=== PATIENT | male | born 1950 | race Caucasian/White ===

== ENCOUNTER 2016-11-15 00:56 | Emergency (ER) | payer MEDICARE, BC ==
[2016-11-15] MEDS ORDERED: SOTALOL 80 MG TAB PO ONE (01:16)
[2016-11-15 02:05] VITALS: TEMP 98.2
[2016-11-15] MEDS ORDERED: DIGOXIN INJ 0.5 MG/2 ML AMP IV ONE (02:57)
--- NOTE | 2016-11-15 03:10 | RAD ---
EXAM DESCRIPTION: XR CHEST 2 VIEWS CLINICAL HISTORY: 66 y/o M, afib c rvr COMPARISON: None TECHNIQUE: Two views of the chest. FINDINGS: The lungs are clear. The heart is normal in size. There is no pneumothorax or pleural effusion. There is no acute fracture. IMPRESSION: No acute cardiopulmonary abnormality. Electronically signed by: Josh Cheatham MD 11/15/2016 03:08
[2016-11-15] MEDS ORDERED: WARFARIN SODIUM 5 MG TAB PO ONE (05:32)
--- NOTE | 2016-11-15 05:38 | ED.PDOC ---
History of Present Illness - General Chief Complaint: Chest Pain/[place] Stated Complaint: chest pain Time Seen by Provider: 11/15/16 01:06 Source: patient Exam Limitations: no limitations - History of Present Illness Initial Comments: the patient is a 66-year-old male presenting to the emergency room secondary to mild chest discomfort rated at a 4/10 with associated palpitations. He does have a history of atrial fibrillation with rapid ventricular rate. He has had approximately 3-4 episodes over the same number of years where he has required electrical versus chemical cardioversion. He is a patient of Dr. Jurado. The last time he chemically cardioverted with digoxin. He is only taking sotalol 1 time a day currently in the morning. In the past he has broken the tablet in half and taking it twice a day. He does feel better once his heart rate comes down. No syncope or near syncope. No fevers. He was not doing anything unusual except having a couple of extra beers at a [employer]. Timing/Duration: 1-3 hours Severity: moderate Improving Factors: nothing Worsening Factors: nothing Associated Symptoms: chest pain Allergies/Adverse Reactions: Allergies NO KNOWN ALLERGY Allergy (Verified 11/15/16 01:22) Home Medications: Ambulatory Orders Aspirin [Baby Aspirin] 81 mg PO DAILY 06/14/13 Atorvastatin Calcium [Lipitor] 10 mg PO DAILY 06/14/13 Digoxin [Lanoxin Tab] 0.25 mg PO Q12N #30 tab 06/14/13 Potassium Chloride Tab [Micro-K] 10 meq PO BID #30 tab 06/14/13 Sotalol [Betapace] 80 mg PO BID 06/14/13 Tamsulosin [Flomax] 0.4 mg PO DAILY 06/14/13 Warfarin Sodium 7.5 mg PO .TU, TH, SAT, S 06/14/13 Warfarin Sodium 10 mg PO .MON, WED, FRI 06/14/13 Sulfa/Trimeth 800/160 (Ds) Tab [Bactrim DS Tab] 1 ea PO BID #28 tab 05/04/15 levoFLOXacin [Levaquin] 500 mg PO DAILY #10 tab 05/04/15 Review of Systems - Review of Systems Constitutional: States: no symptoms reported EENTM: States: no symptoms reported Respiratory: States: no symptoms reported Cardiology: States: chest pain, palpitations Gastrointestinal/Abdominal: States: no symptoms reported Genitourinary: States: no symptoms reported Musculoskeletal: States: no symptoms reported Skin: States: no symptoms reported Neurological: States: no symptoms reported Endocrine: States: no symptoms reported All other Systems: No Change from Baseline Past Medical History (General) - Patient Medical History Hx Seizures: No Hx Stroke: No Hx Asthma: No Hx of COPD: No Hx Cardiac Disorders: Yes Hx Congestive Heart Failure: No Hx Pacemaker: No Hx Hypertension: No Hx Diabetes: No Hx Gastroesophageal Reflux: Yes Hx MRSA: No - Vaccination History Hx Tetanus, Diphtheria Vaccination: No Hx Influenza Vaccination: Yes Hx Pneumococcal Vaccination: No Immunizations Up to Date: No - Social History Hx Tobacco Use: No Hx Alcohol Use: No Hx Substance Use: No Hx Substance Use Treatment: No Hx Depression: No Hx Physical Abuse: No Hx Emotional Abuse: No - Female History Patient is a Female of Child Bearing Age (10 -59 yrs old): No Patient : No - Triage Comment ED Triage Comment: no pain just pressure at this time Family Medical History - Family History Father Living Status: Cause of : cancer-lung Physical Exam - Physical Exam General Appearance: Alert, Anxious, No apparent distress Eye Exam: bilateral normal Ears, Nose, Throat: normal ENT inspection, normal pharynx Neck: non-tender, full range of motion, supple Respiratory: chest non-tender, lungs clear, normal breath sounds, no respiratory distress, no accessory muscle use Cardiovascular/Chest: normal peripheral pulses, no edema, other - tachycardic and irregularly irregular Peripheral Pulses: radial,right: 2+, radial,left: 2+, dorsalis pedis,right: 2+, dorsalis pedis,left: 2+ Gastrointestinal/Abdominal: non tender, soft, no organomegaly Rectal Exam: deferred Back Exam: normal inspection, no CVA tenderness, no vertebral tenderness Extremity: normal range of motion, non-tender, normal inspection, no pedal edema , normal capillary refill Neurologic: alert, normal mood/affect, oriented x 3 Skin Exam: normal color Comments: Vital Signs - 24 hr 11/15/16 11/15/16 11/15/16 01:05 01:13 02:00 Temperature 98.2 F Pulse Rate 145 H Pulse Rate [ 112 H 121 H Left] Respiratory 20 20 Rate Blood Pressure 152/97 99/58 [Left Arm] O2 Sat by Pulse 98 97 Oximetry 11/15/16 11/15/16 11/15/16 02:20 02:35 03:05 Temperature Pulse Rate Pulse Rate [ 141 H 126 H 119 H Left] Respiratory 16 16 16 Rate Blood Pressure 101/54 130/76 118/59 [Left Arm] O2 Sat by Pulse 2 L 98 97 Oximetry 11/15/16 03:35 Temperature Pulse Rate Pulse Rate [ 122 H Left] Respiratory 16 Rate Blood Pressure 128/74 [Left Arm] O2 Sat by Pulse 99 Oximetry Progress - Progress Progress: 11/15/16 05:41 The patient is 66-year-old male presenting with atrial fibrillation with rapid ventricular rate. He received a extra dose of his sotalol along with a dose of IV digoxin and IV diltiazem. He cardioverted after the low dose of IV diltiazem. Chest pain is resolved. Blood pressures are holding steady. The patient will be admitted for monitoring for the next 24 hours. Would suggest possibly increasing his sotalol to 80 mg twice a day from once a day at least until he sees Dr. Jurado again. Due to the fact that he did have some chest discomfort with the tachycardia, may warrant further coronary risk stratification. - Results/Orders Results/Orders: Vital Signs - 24 hr 11/15/16 11/15/16 11/15/16 01:05 01:13 02:00 Temperature 98.2 F Pulse Rate 145 H Pulse Rate [ 112 H 121 H Left] Respiratory 20 20 Rate Blood Pressure 152/97 99/58 [Left Arm] O2 Sat by Pulse 98 97 Oximetry 11/15/16 11/15/16 11/15/16 02:20 02:35 03:05 Temperature Pulse Rate Pulse Rate [ 141 H 126 H 119 H Left] Respiratory 16 16 16 Rate Blood Pressure 101/54 130/76 118/59 [Left Arm] O2 Sat by Pulse 2 L 98 97 Oximetry 11/15/16 03:35 Temperature Pulse Rate Pulse Rate [ 122 H Left] Respiratory 16 Rate Blood Pressure 128/74 [Left Arm] O2 Sat by Pulse 99 Oximetry Laboratory Tests 11/15/16 11/15/16 01:15 03:38 WBC 6.7 RBC 4.69 L Hgb 13.4 L Hct 40.0 L MCV 85.3 MCH 28.5 MCHC 33.5 RDW 13.9 Plt Count 117 L MPV 8.1 Absolute Neuts (auto) 3.60 Absolute Lymphs (auto) 2.10 Absolute Monos (auto) 0.70 Absolute Eos (auto) 0.10 Absolute Basos (auto) 0.10 Neutrophils % 54.9 Lymphocytes % 32.3 Monocytes % 10.1 H Eosinophils % 1.9 Basophils % 0.8 PT 17.5 H INR 1.580 PTT (SP) 41.1 H Sodium 136 Potassium 3.4 L Chloride 102 Carbon Dioxide 26 Anion Gap 11.4 L BUN 10 Creatinine 1.07 BUN/Creatinine Ratio 9.3 L Random Glucose 100 Serum Osmolality 271.1 L Calcium 9.0 Magnesium 1.7 L Total Bilirubin 0.3 AST 27 ALT 20 Alkaline Phosphatase 67 Creatine Kinase 146 122 CK-MB (CK-2) 3.3 2.9 CK-MB (CK-2) % Not Reportable Not Reportable Troponin I < 0.02 < 0.02 B-Natriuretic Peptide 181.0 H Serum Total Protein 6.5 Albumin 3.8 Globulin 2.7 Albumin/Globulin Ratio 1.4 Digoxin < 0.3 L chest x-ray largely appears benign. EKG initially shows A. fib with RVR with a right bundle branch block and questionable old inferior [place] there is possibly a mild left axis deviation. Repeat EKG after cardioversion shows the same except now a heart rate of 51 with a sinus rhythm. No acute ST segment changes concerning for ischemia. Departure - Departure Clinical Impression: Atrial fibrillation with rapid ventricular response Chest pain Qualifiers: Chest pain type: unspecified Qualifier Code: (R07.9) Chest pain, unspecified Disposition: Admit Patient Home Medications: Ambulatory Orders Aspirin [Baby Aspirin] 81 mg PO DAILY 06/14/13 Atorvastatin Calcium [Lipitor] 10 mg PO DAILY 06/14/13 Digoxin [Lanoxin Tab] 0.25 mg PO Q12N #30 tab 06/14/13 Potassium Chloride Tab [Micro-K] 10 meq PO BID #30 tab 06/14/13 Sotalol [Betapace] 80 mg PO BID 06/14/13 Tamsulosin [Flomax] 0.4 mg PO DAILY 06/14/13 Warfarin Sodium 7.5 mg PO .TUES, THURS, SAT, S 06/14/13 Warfarin Sodium 10 mg PO .MON, WED, FRI 06/14/13 Sulfa/Trimeth 800/160 (Ds) Tab [Bactrim DS Tab] 1 ea PO BID #28 tab 05/04/15 levoFLOXacin [Levaquin] 500 mg PO DAILY #10 tab 05/04/15 Decision To Admit - Decistion To Admit Decision to Admit Reason: Medical Nature Decision to Admit Date: 11/15/16 Decision to Admit Time: 05:43
[2016-11-15 06:03] VITALS: BP 119/57; O2SAT 98
[2016-11-15] MEDS ORDERED: ENOXAPARIN SODIUM 80 MG/0.8 ML SYG SUBCU ONE (06:09)
== END 2016-11-15 07:05 | disposition still patient (30) ==
LOC: ER 00:56 → MS 05:41 → UNDOADMOB 05:41 → ER 07:05
DX: I48.91 Unspecified atrial fibrillation (principal); K21.9 Gastro-esophageal reflux disease without esophagitis; I45.10 Unspecified right bundle-branch block; Z79.82 Long term (current) use of aspirin; Z79.899 Other long term (current) drug therapy; Z79.01 Long term (current) use of anticoagulants
CPT/HCPCS: 36415; 71020; 80053; 80162; 82550; 82553; 83735; 83880; 84484; 85025; 85610; 85730; 93005; J1160; J1650

== ENCOUNTER 2017-01-12 16:23 | Emergency (ER) | payer MEDICARE, BC ==
[2017-01-12] MEDS ORDERED: DIGOXIN INJ 0.5 MG/2 ML AMP IV ONE (16:42)
[2017-01-12 16:43] VITALS: TEMP 98
--- NOTE | 2017-01-12 19:19 | ED.PDOC ---
History of Present Illness - General Chief Complaint: Cardiovascular Problem Stated Complaint: dizzy, sob, palpitations Time Seen by Provider: 01/12/17 16:41 Source: patient, RN notes reviewed, Vital Signs reviewed Exam Limitations: no limitations - History of Present Illness Initial Comments: Patient is a 66 y/o male who has a history of afib. He has been on Sotalol for some time. At the beginning of November, he was seen in the ED by Dr. Dai and his sotalol was increased to 120mg due to RVR. 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 Because his Sotalol ws increased to 120 mg but he was not given a new prescription, he ran out of his medication early. The insurance company refused to pay for another prescription until he supervisor composing room was contacted. Therefore, he missed his Sotalol for a day. Patient would feel some heartburn when he was standing and his heart was racing , however when he laid down, his pulse would decrease and the heartburn would stop. Timing/Duration: unsure Severity: moderate Improving Factors: nothing Worsening Factors: nothing Associated Symptoms: denies symptoms Allergies/Adverse Reactions: Allergies NO KNOWN ALLERGY Allergy (Verified 01/12/17 16:43) Home Medications: Ambulatory Orders Aspirin [Baby Aspirin] 81 mg PO DAILY 06/14/13 Atorvastatin Calcium [Lipitor] 10 mg PO DAILY 06/14/13 Digoxin [Lanoxin Tab] 0.25 mg PO Q12N #30 tab 06/14/13 Potassium Chloride Tab [Micro-K] 10 meq PO BID #30 tab 06/14/13 Sotalol [Betapace] 80 mg PO BID 06/14/13 Tamsulosin [Flomax] 0.4 mg PO DAILY 06/14/13 Warfarin Sodium 7.5 mg PO .TU, TH, WED, S 06/14/13 Warfarin Sodium 10 mg PO .MON, WED, FRI 06/14/13 Sulfa/Trimeth 800/160 (Ds) Tab [Bactrim DS Tab] 1 ea PO BID #28 tab 05/04/15 levoFLOXacin [Levaquin] 500 mg PO DAILY #10 tab 05/04/15 Sotalol HCl [Betapace] 120 mg PO DAILY #21 tab 01/12/17 Review of Systems - Review of Systems Constitutional: States: no symptoms reported EENTM: States: no symptoms reported Respiratory: States: short of breath Cardiology: States: chest pain, palpitations Gastrointestinal/Abdominal: States: no symptoms reported Genitourinary: States: no symptoms reported Musculoskeletal: States: no symptoms reported Skin: States: no symptoms reported Neurological: States: no symptoms reported Endocrine: States: no symptoms reported Hematologic/Lymphatic: States: no symptoms reported All other Systems: Reviewed and Negative Past Medical History (General) - Patient Medical History Hx Seizures: No Hx Stroke: No Hx Asthma: No Hx of COPD: No Hx Cardiac Disorders: Yes - A-fib Hx Congestive Heart Failure: No Hx Pacemaker: No Hx Hypertension: No Hx Diabetes: No Hx Gastroesophageal Reflux: Yes Hx MRSA: No - Vaccination History Hx Tetanus, Diphtheria Vaccination: No Hx Influenza Vaccination: Yes Hx Pneumococcal Vaccination: No - Social History Hx Tobacco Use: Yes Hx Alcohol Use: No Hx Substance Use: No Hx Substance Use Treatment: No Hx Depression: No Hx Physical Abuse: No Hx Emotional Abuse: No - Activities of Daily Living Hospice Agency (if applicable):: None - Female History Patient is a Female of Child Bearing Age (10 -59 yrs old): No Patient : No Family Medical History - Family History Father Living Status: Cause of : cancer-lung Physical Exam - Physical Exam General Appearance: Alert, Obvious distress, Well Groomed Ears, Nose, Throat: hearing grossly normal, normal ENT inspection Respiratory: lungs clear, normal breath sounds, no respiratory distress, no accessory muscle use Cardiovascular/Chest: irregularly irregular - Auscultated after digoxin given. Rate was normal. Gastrointestinal/Abdominal: normal bowel sounds, non tender, soft, no organomegaly Extremity: normal range of motion, non-tender, normal inspection, no pedal edema , no calf tenderness Neurologic: alert, normal mood/affect, oriented x 3 Skin Exam: normal color, warm/dry Progress - Results/Orders Results/Orders: 01/12/17 01/12/17 01/12/17 16:25 16:44 17:09 Temperature 98.0 F Pulse Rate [ 156 H 65 pulse ox] Respiratory 20 20 20 Rate Blood Pressure 119/66 120/79 [Left Arm] O2 Sat by Pulse 98 98 Oximetry 01/12/17 18:00 Temperature Pulse Rate [ 60 pulse ox] Respiratory 20 Rate Blood Pressure 118/71 [Left Arm] O2 Sat by Pulse 100 Oximetry 01/12/17 16:45 EKG STAT 01/12/17 19:00 EKG STAT - EKG/XRAY/CT EKG: Atrial, Fibrillation - 155 bpm, RVR, no ST T wave changes, Unchanged from - EKG of 11/15/2016 - Afib with RVR rate 142 Comments: Unable to determine [place], Low voltage QRS, Afib with RVR - Additional EKG/XRAY/Consults EKG #2: [place] - 55 bpm, Sinus, no ST T wave changes, Changed from - EKG #1 - converted to sinus rhythm Comments: LAD, low voltage QRS, PACs Departure - Departure Clinical Impression: Atrial fibrillation with rapid ventricular response Time of Disposition: 19:34 Disposition: Discharge to Home or Self Care Condition: Fair Departure Forms: ED Discharge - Pt. Copy, Patient Portal Self Enrollment Instructions: Atrial Fibrillation, DI for Atrial Fibrillation Diet: resume usual diet Referrals: Sonu Isaacs MD [Primary Care Provider] - 1-2 Weeks Prescriptions: Sotalol HCl [Betapace] 120 mg PO DAILY #21 tab Home Medications: Ambulatory Orders Aspirin [Baby Aspirin] 81 mg PO DAILY 06/14/13 Atorvastatin Calcium [Lipitor] 10 mg PO DAILY 06/14/13 Digoxin [Lanoxin Tab] 0.25 mg PO Q12N #30 tab 06/14/13 Potassium Chloride Tab [Micro-K] 10 meq PO BID #30 tab 06/14/13 Sotalol [Betapace] 80 mg PO BID 06/14/13 Tamsulosin [Flomax] 0.4 mg PO DAILY 06/14/13 Warfarin Sodium 7.5 mg PO .TU, TH, SAT, S 06/14/13 Warfarin Sodium 10 mg PO .MON, WED, FRI 06/14/13 Sulfa/Trimeth 800/160 (Ds) Tab [Bactrim DS Tab] 1 ea PO BID #28 tab 05/04/15 levoFLOXacin [Levaquin] 500 mg PO DAILY #10 tab 05/04/15 Sotalol HCl [Betapace] 120 mg PO DAILY #21 tab 01/12/17
[2017-01-12 19:40] VITALS: BP 137/76; O2SAT 98
== END 2017-01-12 19:45 | disposition home or self-care (01) ==
LOC: ER 16:23
DX: I48.91 Unspecified atrial fibrillation (principal); Z79.82 Long term (current) use of aspirin; Z79.01 Long term (current) use of anticoagulants; Z79.899 Other long term (current) drug therapy; Z87.891 Personal history of nicotine dependence; Z80.1 Family history of malignant neoplasm of trachea, bronchus and lung
CPT/HCPCS: 93005; J1160

== ENCOUNTER → 2017-03-25 | Outpatient (CLI) | payer MEDICARE, BC | END | disposition home or self-care (01) | LOC: GMAB 10:10 | PROVIDERS: ATTEND Family Medicine | DX: E78.2 Mixed hyperlipidemia (principal); Z12.5 Encounter for screening for malignant neoplasm of prostate | CPT/HCPCS: 84443; G0103 ==

== ENCOUNTER → 2017-10-12 | Outpatient (CLI) | payer MEDICARE, BC ==
--- NOTE | 2017-10-12 20:02 | MRI ---
EXAM DESCRIPTION: Lumbar Spine w/o Contrast CLINICAL HISTORY: LUMBAR RADICULOPATHY COMPARISON: None Available. TECHNIQUE: Multiplanar multisequence MR imaging of the lumbar spine was performed without contrast FINDINGS: There are diffuse nonspecific marrow signal changes in the vertebral bodies. There is moderate neural foraminal narrowing bilaterally at T12-L1, L1-2, L2-3, and L3-4. At L4-5 there is moderately severe right and severe left neuroforaminal narrowing. L5-S1 there is moderately severe right and severe left neuroforaminal narrowing. There is moderately severe loss of height of the L3-4 and L5-S1 discs. There is moderate loss of height of the L4-5 disc. There are multiple moderate anterior disc osteophyte complexes. Broad-based disc bulge and L1 to causes moderate central canal and moderate bilateral lateral recess narrowing. Broad-based disc bulge at L2-3 causes moderately severe central canal narrowing and there is moderately severe bilateral lateral recess narrowing. There is moderate bilateral facet joint hypertrophy at this level. At L3-4 there is mild central canal and moderate right lateral recess and mild left lateral recess narrowing caused by broad-based right posterior disc bulge. Left paracentral disc protrusion at L4-5 causes moderate central canal and moderately severe left lateral recess narrowing. There are multilevel bilateral lateral disc osteophyte complexes. For purposes of this exam, it is assumed that there are five nonrib-bearing lumbar vertebral bodies. There is no evidence of acute fracture. No spondylolisthesis or spondylolysis seen. IMPRESSION: Stenoses as above. Electronically signed by: Luis Miguel Mendoza 10/12/2017 8:01 PM [facility]
== END | disposition home or self-care (01) ==
LOC: MRI 15:03
PROVIDERS: ATTEND Physical Medicine & Rehabilitation
DX: M54.16 Radiculopathy, lumbar region (principal)

== ENCOUNTER 2017-10-29 17:35 | Emergency (ER) | payer MEDICARE, BC ==
[2017-10-29] MEDS ORDERED: ASPIRIN (CHEWABLE) 81 MG TAB PO ONE (17:43)
--- NOTE | 2017-10-29 18:16 | RAD ---
EXAM DESCRIPTION: Chest,1 View CLINICAL HISTORY: pain COMPARISON: 11/15/2016 FINDINGS: Cardiac silhouette is within normal limits. Nonspecific density at the lateral aspect of the left lung base could reflect loculated effusion. Pleural-based mass not entirely excluded. The medial margin is better defined than typical for consolidation or atelectasis. There is density at this location previously. There is no new focal parenchymal or pleural disease. Visualized osseous structures are within normal limits. IMPRESSION: No evidence of acute cardiopulmonary disease. Electronically signed by: Luis Miguel Mendoza 10/29/2017 6:15 PM [facility]
[2017-10-29 18:20] VITALS: O2SAT 97
[2017-10-29] MEDS ORDERED: SODIUM CHLORIDE 0.9% 250ML 250 ML ONE (19:04)
[2017-10-29] MEDS ORDERED: diltiaZEM DRIP 125 MG/25 ML VIAL IVPB ONE (19:05)
[2017-10-29] MEDS ORDERED: SODIUM CHLORIDE 0.9% 100ML 100 ML IVPB ONE (19:08)
--- NOTE | 2017-10-29 19:24 | ED.PDOC ---
History of Present Illness - General Chief Complaint: Chest Pain/[place] Stated Complaint: chest pain,tachycardic Time Seen by Provider: 10/29/17 17:42 Source: patient Exam Limitations: no limitations - History of Present Illness Initial Comments: Richard Hutchins 67 y/o male brought by to [facility] with sharp chest pains while driving ,feeling heart beating fast,and sob.Had some diaphoresis but no nausea,vomiting dizziness or passing out.Has afib for 10 years anticoagulated and also had cardiac ablation done was controlled for 4 years but recurred. Timing/Duration: 1-3 hours Severity: moderate Location: central Activities at Onset: activity Prior Chest Pain/Cardiac Workup: cardiac cath, other - cardiac ablation Improving Factors: nothing Worsening Factors: nothing Nitro Today/Relief: provided by ED Aspirin Treatment Today: 325 mg x 1, provided by ED Associated Symptoms: other - see hpi Allergies/Adverse Reactions: Allergies NO KNOWN ALLERGY Allergy (Verified 01/12/17 16:43) Home Medications: Ambulatory Orders Aspirin [Baby Aspirin] 81 mg PO DAILY 06/14/13 Atorvastatin Calcium [Lipitor] 10 mg PO DAILY 06/14/13 Digoxin [Lanoxin Tab] 0.25 mg PO Q12N #30 tab 06/14/13 Potassium Chloride Tab [Micro-K] 10 meq PO BID #30 tab 06/14/13 Sotalol [Betapace] 80 mg PO BID 06/14/13 Tamsulosin [Flomax] 0.4 mg PO DAILY 06/14/13 Warfarin Sodium 7.5 mg PO .TU, TH, SAT, S 06/14/13 Warfarin Sodium 10 mg PO .MON, WED, FRI 06/14/13 Sulfa/Trimeth 800/160 (Ds) Tab [Bactrim DS Tab] 1 ea PO BID #28 tab 05/04/15 levoFLOXacin [Levaquin] 500 mg PO DAILY #10 tab 05/04/15 Sotalol HCl [Betapace] 120 mg PO DAILY #21 tab 01/12/17 Past Medical History (General) - Patient Medical History Hx Seizures: No Hx Stroke: No Hx Asthma: No Hx of COPD: No Hx Cardiac Disorders: Yes - A-fib Hx Congestive Heart Failure: No Hx Pacemaker: No Hx Hypertension: No Hx Diabetes: No Hx Gastroesophageal Reflux: Yes Hx MRSA: No Surgical History: no surgical history - Vaccination History Hx Tetanus, Diphtheria Vaccination: No Hx Influenza Vaccination: No Hx Pneumococcal Vaccination: Yes - 10/28/17 - Social History Hx Tobacco Use: Yes Hx Alcohol Use: No Hx Substance Use: No Hx Substance Use Treatment: No Hx Depression: No Hx Physical Abuse: No Hx Emotional Abuse: No - Activities of Daily Living Patient Lives Alone: No - - Female History Patient : No Family Medical History - Family History Father Living Status: Cause of : cancer-lung Hx Cardiac Disease: Yes - multiple family members Physical Exam - Physical Exam General Appearance: Alert, Anxious, Comfortable, No apparent distress Eyes, Ears, Nose, Throat Exam: PERRL/EOMI, normal ENT inspection Neck: non-tender, full range of motion, supple Respiratory: chest non-tender, lungs clear, normal breath sounds, no respiratory distress Cardiovascular/Chest: tachycardia - heart rate-164, irregularly irregular Peripheral Pulses: radial,right: 2+, radial,left: 2+ Gastrointestinal/Abdominal: normal bowel sounds, non tender, soft, no organomegaly Extremity: normal range of motion, non-tender, no pedal edema, no calf tenderness Skin Exam: normal color, warm/dry Lymphatic: no adenopathy Progress - Progress Progress: 10/29/17 19:29 Last Vital Signs Temp Pulse 144 H 10/29/17 18:17 Resp 20 10/29/17 18:15 BP 135/72 10/29/17 18:15 Pulse Ox 97 10/29/17 18:15 - Results/Orders Results/Orders: Laboratory Tests 10/29/17 10/29/17 17:45 19:33 WBC 8.7 RBC 4.69 L Hgb 14.2 Hct 41.9 L MCV 89.3 MCH 30.2 MCHC 33.8 RDW 13.7 Plt Count 152 MPV 7.7 Absolute Neuts (auto) 5.30 Absolute Lymphs (auto) 2.40 Absolute Monos (auto) 0.90 H Absolute Eos (auto) 0.10 Absolute Basos (auto) 0.10 Neutrophils % 60.6 Lymphocytes % 27.6 Monocytes % 9.9 H Eosinophils % 1.2 Basophils % 0.7 PT 20.0 H INR 1.780 PTT (SP) 38.4 H Sodium 131 L Potassium 3.8 Chloride 95 L Carbon Dioxide 29 Anion Gap 10.8 L BUN 14 Creatinine 1.14 BUN/Creatinine Ratio 12.3 Random Glucose 106 H Serum Osmolality 263.5 L Calcium 9.2 Magnesium 1.8 Total Bilirubin 0.6 Direct Bilirubin 0.2 Indirect Bilirubin 0.4 AST 20 ALT 19 Alkaline Phosphatase 56 Creatine Kinase 121 CK-MB (CK-2) 3.8 CK-MB (CK-2) % Not Reportable Troponin I < 0.02 < 0.02 Serum Total Protein 7.3 Albumin 4.2 - EKG/XRAY/CT EKG: Atrial, Fibrillation, nonspecific ST T wave Chg Comments: Heart rate-163 XRAY: chest - no acute abnormality Departure - Departure Clinical Impression: Atrial fibrillation with rapid ventricular response Chest pain Qualifiers: Chest pain type: chest pain due to myocardial ischemia Ischemic chest pain type : unspecified angina pectoris type Qualified Code(s): I20.9 - Angina pectoris, unspecified Time of Disposition: 22:29 Disposition: Transfer to Hospital Condition: Fair Departure Forms: Patient Portal Self Enrollment Referrals: Sonu Isaacs MD [Primary Care Provider] - 1-2 Weeks Home Medications: Ambulatory Orders Aspirin [Baby Aspirin] 81 mg PO DAILY 06/14/13 Atorvastatin Calcium [Lipitor] 10 mg PO DAILY 06/14/13 Digoxin [Lanoxin Tab] 0.25 mg PO Q12N #30 tab 06/14/13 Potassium Chloride Tab [Micro-K] 10 meq PO BID #30 tab 06/14/13 Sotalol [Betapace] 80 mg PO BID 06/14/13 Tamsulosin [Flomax] 0.4 mg PO DAILY 06/14/13 Warfarin Sodium 7.5 mg PO ., , SAT, S 06/14/13 Warfarin Sodium 10 mg PO .MON, WED, Wed06/14/13 Sulfa/Trimeth 800/160 (Ds) Tab [Bactrim DS Tab] 1 ea PO BID #28 tab 05/04/15 levoFLOXacin [Levaquin] 500 mg PO DAILY #10 tab 05/04/15 Sotalol HCl [Betapace] 120 mg PO DAILY #21 tab 01/12/17 Transfer to Outside Facility - Transfer Information Accepting Provider:: D/W Dr. Tam -DRE Bateman Accepting Facility: [facility] Reason for Transfer: required specialist not available
[2017-10-29] MEDS ORDERED: DIGOXIN INJ 0.5 MG/2 ML AMP IV ONE (19:48)
[2017-10-29] MEDS ORDERED: SODIUM CHLORIDE 0.9% 1000ML 1,000 ML ONE (19:57)
[2017-10-29] MEDS ORDERED: diltiaZEM DRIP 125 MG in SODIUM CHLORIDE 0.9% 100ML 100 ML IVPB SCH (22:30)
[2017-10-29 23:07] VITALS: TEMP 97.6
[2017-10-29] MEDS ORDERED: SODIUM CHLORIDE 0.9% 1000ML 1,000 ML IVS PRN (23:08)
[2017-10-29] MEDS ORDERED: SUCRALFATE 1 GM/10 ML 1 GM UD PO ONE (23:09)
[2017-10-29] MEDS ORDERED: ALUM & MAG HYDROX-SIMETHICONE 30 ML, LIDOCAINE VISCOUS 2% 15 ML PO ONE ×2 (23:10)
[2017-10-29] MEDS ORDERED: ALUM & MAG HYDROX-SIMETHICONE 30 ML UD ONE (23:14)
[2017-10-29] MEDS ORDERED: LIDOCAINE HCL 2% (MOUTH-THROAT) 15 ML UD ONE (23:14)
[2017-10-29 23:32] VITALS: BP 126/77
== END 2017-10-29 23:20 | disposition short-term general hospital (02) ==
LOC: ER 17:35
DX: I20.9 Angina pectoris, unspecified (principal); I48.91 Unspecified atrial fibrillation; Z79.01 Long term (current) use of anticoagulants; Z87.891 Personal history of nicotine dependence; Z79.82 Long term (current) use of aspirin
CPT/HCPCS: 36415; 71010; 80048; 80076; 82550; 82553; 84484; 85025; 85610; 85730; 93005; J1160; J7030; J7050

== ENCOUNTER → 2017-11-25 | Outpatient (CLI) | payer MEDICARE, BC ==
--- NOTE | 2017-11-26 14:20 | US ---
EXAM DESCRIPTION: Aorta: Ultrasound CLINICAL HISTORY: AAA COMPARISON: Ultrasound carotid vertebral duplex examination on the same visit. CT abdomen and pelvis with contrast 02/06/2015. TECHNIQUE: Transcutaneous scanning: Two-dimensional and Doppler modes. FINDINGS: Abdominal aorta diameter (cm) Proximal: 2.3 x 1.9 cm.. Mid: 2.3 x 1.8 cm. Distal: 3.7 x 3.0 cm. Common Iliac diameter (mm) Right: 12. Left: 12. Other: Intimal wall thickening and atherosclerotic calcification in the abdominal aorta and the bilateral common iliac arteries.. IMPRESSION: 3.7 cm aneurysm of the distal abdominal aorta. This has enlarged since the CT scan of abdomen and pelvis January 2015. According to [facility] Best Practice recommendations, follow up of the distal abdominal aortic aneurysm should be in 12 month interval. Please see below.* *AAA Size: Follow-up Recommendation (1): 2.6 - 2.9 cm Every 5 years (2) 3.0 - 3.4 cm Every 3 years 3.5 - 3.9 cm Every 12 months 4.0 - 4.4 cm Every 12 months, vasc consult rec 4.5 - 5.4 cm Every 6 months, vasc consult rec >=5.5 cm Referral to vascular surgeon recommended (1)Based upon the Society for Vascular Surgery Guidelines: J Vasc Surg. 2009 Aug;50(4 Suppl):S2-49 (2)For aortas of max bartolo of 2.6-2.9 cm that meet criteria for AAA (>= 1.5 x proximal normal segment) Electronically signed by: Luis Miguel Holt MD 11/26/2017 2:18 PM [employer]BER [employer] INVESTIGATOR
--- NOTE | 2017-11-26 14:30 | US ---
EXAM DESCRIPTION: Carotid Duplex: ULTRASOUND. CLINICAL HISTORY: STENOSIS COMPARISON: Ultrasound of the abdominal aorta on this visit. TECHNIQUE: Transcutaneous scanning utilizing 2-dimensional and Doppler modes to evaluate the bilateral carotid systems and vertebral arteries. Percentage of diameter of stenosis or no stenosis recorded will be based upon NASCET criteria. FINDINGS: Peak systolic/end diastolic (CM-Sec) CCA Right 109/45 Left 117/29. ICA Right proximal 73/23, mid 80/25. Left proximal 39/18, Distal 67/24. Vertebral Right 40/14 Left 48/8. ECA (PS Only) Right 88 left 60. ICA/CCA peak systolic ratio: Right 0.7 Left 0.6. ICA/CCA end diastolic ratio: Right 0.6 Left 0.8 Vertebral arteries: antegrade flow. Comments: Atherosclerotic calcifications in the bilateral common carotid bulbs and proximal ICAs. Spectral broadening in the bilateral ICAs. Largest diameter stenosis was 31% in the left common carotid bulb. This was also the greatest area stenosis at 23%. IMPRESSION: 1. Doppler evaluation of the bilateral carotid systems and vertebral arteries shows no hemodynamically significant stenoses. 2. No significant amount of plaque seen in the carotid arteries bilaterally. Bilateral vertebral arteries showed antegrade-cephalad flow. Electronically signed by: Luis Miguel Holt MD 11/26/2017 2:29 PM RHEOLOGIST
== END | disposition home or self-care (01) ==
LOC: US 09:00
PROVIDERS: ATTEND Family Medicine
DX: I65.23 Occlusion and stenosis of bilateral carotid arteries (principal); I71.4 Abdominal aortic aneurysm, without rupture

== ENCOUNTER 2018-01-17 11:12 | Observation (INO) | payer MEDICARE, BC ==
[2018-01-17] MEDS ORDERED: ASPIRIN TABLET 325 MG TAB PO ONE (11:31)
[2018-01-17] MEDS ORDERED: ALUMINUM & MAGNESIUM HYDROXIDE 30 ML UD PO ONE (11:31)
[2018-01-17] MEDS ORDERED: SOTALOL 80 MG TAB PO ONE (11:31)
[2018-01-17] MEDS ORDERED: MAGNESIUM SULFATE PREMIX 2GM 2 GM in PREMIX BAG 1 BAG IVPB ONE (12:12)
[2018-01-17] MEDS ORDERED: MAGNESIUM SULFATE PREMIX 2GM 50 ML IVPB ONE (12:15)
--- NOTE | 2018-01-17 12:24 | RAD ---
EXAM DESCRIPTION: Portable Chest CLINICAL HISTORY: cp with atrial flutter COMPARISON: October 29, 2017 TECHNIQUE: Single frontal view of chest FINDINGS: Lungs are stably aerated bilaterally. Mildly increased interstitial opacities in the lower right lung. No consolidation or pneumothorax nor costophrenic blunting elsewhere on either side. Cardiac mediastinal contours are stable in appearance. Calcific atherosclerotic deposition again seen in aortic arch IMPRESSION: Increase atelectatic or early airspace consolidative changes in lower right lung Electronically signed by: Ra Foster MD 01/17/2018 12:23 PM COVER CUTTER
[2018-01-17] MEDS ORDERED: DIGOXIN INJ 0.5 MG/2 ML AMP IV ONE ×2 (13:28→21:00)
--- NOTE | 2018-01-17 13:30 | ED.PDOC ---
History of Present Illness - General Chief Complaint: Cardiovascular Problem Stated Complaint: chest pain Time Seen by Provider: 01/17/18 11:15 Source: patient Exam Limitations: no limitations - History of Present Illness Initial Comments: The patient is a 67-year-old male who is a patient of Dr. Jurado. The patient has a history of atrial fibrillation and atrial flutter with rapid ventricular rate that is paroxysmal in nature. He had an ablation several years ago. One to 2 times yearly he apparently gets over her anterior A. fib or a flutter with RVR. This apparently occurred 3 days ago. Normally the patient comes in earlier however this time he did delay as he was not having very severe symptoms. Symptoms include some epigastric discomfort and some substernal discomfort. He does feel a little bit weak and dizzy when trying to do significant physical activities with this. No syncope or near syncope. No back pain. No cough or fever. No new swelling. No swelling of his abdomen. No edema. No orthopnea or paroxysmal nocturnal dyspnea. The patient had decided that after 3 days his abdominal wall enough so he showed up to the emergency room. Blood pressures are averaging around 100/70. Heart rates are right at 120 bpm and EKG shows atrial flutter with 2:1 conduction. interestingly thechest and epigastric discomfort didn't go away with a dose of Maalox here. Severity: moderate Improving Factors: nothing Worsening Factors: nothing Associated Symptoms: chest pain, malaise, weakness Allergies/Adverse Reactions: Allergies NO KNOWN ALLERGY Allergy (Verified 01/17/18 11:37) Home Medications: Ambulatory Orders Aspirin [Baby Aspirin] 81 mg PO DAILY 06/14/13 Atorvastatin Calcium [Lipitor] 10 mg PO DAILY 06/14/13 Sotalol [Betapace] 40 mg PO BID 06/14/13 Warfarin Sodium 7.5 mg PO ., TH, WED, S 06/14/13 Warfarin Sodium 10 mg PO .MON, WED, Wed06/14/13 Aspirin [St Jb Aspirin] 81 mg PO DAILY 01/17/18 Memantine HCl [Namenda] 10 mg PO DAILY 01/17/18 Review of Systems - Review of Systems Constitutional: States: malaise, weakness - mild generalized EENTM: States: no symptoms reported Respiratory: States: short of breath - with exertion only Cardiology: States: chest pain - ild substernal Gastrointestinal/Abdominal: States: abdominal pain - ild epigastric Genitourinary: States: no symptoms reported Musculoskeletal: States: no symptoms reported Skin: States: no symptoms reported Neurological: States: no symptoms reported Endocrine: States: no symptoms reported All other Systems: No Change from Baseline Past Medical History (General) - Patient Medical History Hx Seizures: No Hx Stroke: No Hx Asthma: No Hx of COPD: No Hx Cardiac Disorders: Yes - A-fib Hx Congestive Heart Failure: No Hx Pacemaker: No Hx Hypertension: No Hx Diabetes: No Hx Gastroesophageal Reflux: Yes Hx MRSA: No Surgical History: other - Vaccination History Hx Tetanus, Diphtheria Vaccination: No Hx Influenza Vaccination: No Hx Pneumococcal Vaccination: Yes - 10/28/17 - Social History Hx Tobacco Use: Yes Hx Alcohol Use: No Hx Substance Use: No Hx Substance Use Treatment: No Hx Depression: No Hx Physical Abuse: No Hx Emotional Abuse: No - Female History Patient : No Family Medical History - Family History Father Living Status: Cause of : cancer-lung Hx Cardiac Disease: Yes - multiple family members Physical Exam - Physical Exam General Appearance: Alert, Comfortable, No apparent distress Eye Exam: bilateral normal Ears, Nose, Throat: hearing grossly normal, normal ENT inspection, normal pharynx Neck: full range of motion, supple, normal inspection Respiratory: no respiratory distress, no accessory muscle use, other - he does have very fine rales at the right base Otherwise lungs are clear. 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 His BNP is more elevated than in the past however this is likely due to the patient delaying coming in for 3 days this time. He really has minimal evidence of any CHF exacerbation clinically. His most significant symptom is the epigastric discomfort and shortness of breath with activity. Electrocardioversion has been offered to the patient however he defers that at this time in favor of attempting chemical cardioversion. Chemical cardioversion has worked every time in the past so far. This is reasonable given that he does appear to be clinically stable at this time. He is adequately anticoagulated and fact is actually supratherapeutic and his INR. The patient was given one small dose of Cardizem without any significant effect. He was given an extra 40 mg of sotalol orally and after his IV magnesium goes and will be receiving a dose of IV digoxin. this is being used secondary to the borderline blood pressure. This has apparently worked in the past. Repeat cardiac enzymes in 8 hours may be beneficial however given the duration of symptoms they are unlikely to change significantly. Admit for further management. Electrocardioversion if the patient becomes unstable in any way. chest x-ray shows either a small right lower lobe infiltrate versus atelectasis. Given his history and physical exam I 'm more inclined to think that this is atelectasis. However if the patient's clinical presentation changes in favor of the other then antibiotics should of course be started. - Results/Orders Results/Orders: 01/17/18 11:30 Telemetry .CONTINUOUS 01/17/18 11:45 EKG STAT 01/17/18 Lunch Cardiac Diet Laboratory Results - last 24 hr 01/17/18 01/17/18 01/17/18 11:35 11:35 11:35 WBC 11.2 H RBC 5.04 Hgb 14.6 Hct 43.3 MCV 85.9 MCH 28.9 MCHC 33.7 RDW 13.7 Plt Count 283 MPV 7.6 Absolute Neuts (auto) 8.50 H Absolute Lymphs (auto) 1.70 Absolute Monos (auto) 0.70 Absolute Eos (auto) 0.10 Absolute Basos (auto) 0.20 H Neutrophils % 75.8 Lymphocytes % 14.8 L Monocytes % 6.7 Eosinophils % 1.3 Basophils % 1.4 PT 48.5 H* INR 4.360 H* PTT (SP) 59.0 H Sodium 134 L Potassium 4.1 Chloride 99 L Carbon Dioxide 27 Anion Gap 12.1 BUN 15 Creatinine 1.25 BUN/Creatinine Ratio 12.0 Random Glucose 148 H Serum Osmolality 271.8 L Calcium 9.2 Magnesium 1.6 L Total Bilirubin 1.5 H AST 16 ALT 15 Alkaline Phosphatase 70 Creatine Kinase 50 CK-MB (CK-2) 1.9 CK-MB (CK-2) % Not Reportable Troponin I 0.02 B-Natriuretic Peptide 1210.0 H* Serum Total Protein 7.0 Albumin 3.2 Globulin 3.8 H Albumin/Globulin Ratio 0.8 L Amylase 72 TSH 0.95 chest x-ray shows questionable small right lower lobe infiltrate versus atelectasis. EKG shows atrial flutter with 21 conduction at 120 bpm. See no definitive evidence of localized ischemia on this EKG it is somewhat difficult to interpret secondary to distortion in the ST segments. Departure - Departure Clinical Impression: Atrial flutter, paroxysmal Disposition: Admit Patient Home Medications: Ambulatory Orders Aspirin [Baby Aspirin] 81 mg PO DAILY 06/14/13 Atorvastatin Calcium [Lipitor] 10 mg PO DAILY 06/14/13 Sotalol [Betapace] 40 mg PO BID 06/14/13 Warfarin Sodium 7.5 mg PO .TU, TH, SAT, S 06/14/13 Warfarin Sodium 10 mg PO .MON, WED, FRI 06/14/13 Aspirin [St Jb Aspirin] 81 mg PO DAILY 01/17/18 Memantine HCl [Namenda] 10 mg PO DAILY 01/17/18 Decision To Admit - Decistion To Admit Decision to Admit Reason: Medical Nature Decision to Admit Date: 01/17/18
--- NOTE | 2018-01-17 15:13 | HP ---
SUPERVISING PHYSICIAN: Artie Dai MD CHIEF COMPLAINT: Chest pains and palpitations. HISTORY OF PRESENT ILLNESS: Mr. Mortensen is a 67 year-old male patient with a history of atrial fibrillation and flutter that is paroxysmal in nature. He has had multiple ablations in the past year. He is followed by Dr. Jurado. He notes that he has had several episodes at least twice a year where he apparently gets into atrial fibrillation or flutter with rapid ventricular response. In the last three days he has noted he was starting to have a rapid heart rate but had delayed coming to the hospital hoping that he would convert without any assistance. His symptoms continue to worsen and he developed some gastric discomfort as well as some substernal chest pains. He notes that he is also feeling a little bit weak and dizzy on admission when he tries to flake off and due his normal activities. He has not had any syncopal or near- syncopal episodes. He denied any orthopnea or paroxysmal nocturnal dyspnea. On presentation to the Emergency Room his vital signs showed he was afebrile with a temperature of 97.4. Initial pulse was 168 with a blood pressure of 102/ 77 with saturation of 95%. In the Emergency Department he was given an initial trial of Cardizem but, however, was having some issues with hypertension. It is also noted that on the laboratory studies he had a low magnesium of 1.6. He is on Sotalol for rate control and in the past has had good luck with chemical conversion with digoxin. He was offered cardioversion in the Emergency Room with electrical methods but declined but was to be admitted and try more conservative measures with possibly digoxin or Cardizem. Initially he was located with digoxin at 0.5 ing in the Emergency Room. He is on Warfarin and his labs today showed he was supratherapeutic with an INR of 4.36. However, he had just taken his Warfarin 2 hours prior to labs being drawn. EKG showed he was in A-flutter with a 2:1 conduction. His chest x-ray per radiology interpretation showed increase in atelectatic or early air space consolidative changes in the right lower lung. His additional laboratory studies also showed he had an elevated BNP of 1210 but his troponin was within normal limits at 0.02. The patient is now going to be placed in observation close telemetry monitoring and continuation of loading of digoxin in attempts to do a chemical cardioversion as the patient is hemodynamically stable. The patient is placed in observation in stable condition. PAST MEDICAL HISTORY: 1. Atrial fibrillation, A-flutter status post ablation multiple times in several years. 2. Chronic Coumadin therapy. 3. Cardiac arrhythmias on Sotalol. 4. Hyperlipidemia. 5. Benign prostatic hypertrophy. . 6. Hyperlipidemia. 7. Gastroesophageal reflux disease. PAST SURGICAL HISTORY: 1. Status post heart catheterization. CURRENT MEDICATIONS: 1. Pantoprazole 40 mg daily. 2. Lipitor 20 mg daily. 3. Aspirin 81 mg daily. 4. Namenda 10 mg daily. 5. Betapace 40 mg b.i.d. 6. Warfarin 7.5 mg Wednesday through Wednesday, Wednesday. 7. Warfarin 10 mg Wednesday, Wednesday, Wednesday. ALLERGIES: NO KNOWN DRUG ALLERGIES. FAMILY HISTORY: Significant for multiple cancers including lung and colon as well as chronic obstructive pulmonary disease. SOCIAL HISTORY: The patient lives in [place]. 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 He does have a history of smoking well over 45 years and currently smokes about a half pack a day. He denies any significant alcohol usage. He is . He denies any illicit drug use. REVIEW OF SYSTEMS: PHYSICAL EXAMINATION: GENERAL: The patient was alert and appeared to be comfortable and in no acute distress on examination on the medical/surgical floor. HEENT: Tympanic membranes clear bilaterally. Oropharynx pink and moist without any lesions. NECK: Supple, non-tender with full range of motion. No jugular venous distention. CHEST: Lungs clear to auscultation with no obvious rhonchi, rales, or wheezes. HEART: Regular rate, showing tachycardiac rhythm on bedside monitor with no murmurs or gallops noted. ABDOMEN: Soft with some mild epigastric discomfort on palpation. No rebound tenderness but no peritoneal signs. EXTREMITIES: No cyanosis, clubbing, or edema. NEUROLOGICAL: He is alert and oriented x3. Cranial nerves II through XII grossly intact. Facial features were symmetrical. Extraocular movements were within normal limits. There was no notable nystagmus. LABORATORY: CBC showed a white count of 11,200 with hemoglobin 14.6, hematocrit 43.3 with platelet count of 283,000, differential showed to be without a left shift. Coagulation studies showed an elevated PT of 48.5 with INR of 4.36, PTT 59.0. Chemistries showed a mild hyponatremia with a sodium of 134, potassium 4.1. Other electrolytes were within normal limits. Creatinine 1.25, BUN 15, glucose 148, magnesium 1.6, bilirubin 1.5. All other liver functions were within normal limits. Initial cardiac troponin negative at 0.02. BNP was elevated at 1210. RADIOLOGY: Chest x-ray in the Emergency Room per radiology interpretation, single view, showed increased atelectatic early air-space consolidative changes in the right lower lung. ASSESSMENT: 1. Atrial flutter with 2:1 conduction with a rapid ventricular response with the patient having a history of atrial flutter that is paroxysmal in nature with previous ablations in the past. 2. Chronic Coumadin therapy with supratherapeutic level today likely due to false elevation from drawing levels two hours after initial dose was taken today. 3. Hyperlipidemia. 4. Benign prostatic hypertrophy. 5. Mild electrolyte imbalance to include hyponatremia. PLAN: Mr. Hutchins is going to be placed in observation today in efforts to assist in his chemical cardioversion. He was given initial loading dose of digoxin in the Emergency Room at 0.5 mg. This will be followed up with 2.5 mg every 6 to 8 hours. He will be on telemetry. Will do DVT prophylaxis as he is already on Warfarin. Will anticipate length of stay to be at least one to two days, depending on how he responds to the loading of his digoxin. Will also start him on a little IV fluids to replace some of the lost sodium. Will restart his home medications once those have been updated and verified and until stable and clinically able to be discharged, we will continue to monitor and treat appropriately. #[id number] [facility]
[2018-01-17] MEDS ORDERED: MORPHINE SULFATE INJ 10 MG/ML VIAL IV PRN (15:53)
[2018-01-17] MEDS ORDERED: ACETAMINOPHEN 325 MG TAB PO PRN (15:53)
[2018-01-17] MEDS ORDERED: NITROGLYCERIN 0.4 MG 25 EA TAB SL PRN (15:53)
[2018-01-17] MEDS ORDERED: SODIUM CHLORIDE 0.9% (FLUSH) 10 ML SYG IV PRN (15:53)
[2018-01-17] MEDS ORDERED: IV SET AND CAP CHANGE INJ INJ SCH (16:00)
[2018-01-17] MEDS: KCL 20 MEQ/NS 1,000 ML IVS PRN (17:07)
[2018-01-17] MEDS: SOTALOL 80 MG TAB PO SCH (20:50)
[2018-01-17] MEDS: SODIUM CHLORIDE 0.9% (FLUSH) 10 ML SYG IV SCH (21:05)
--- NOTE | 2018-01-18 01:14 | PCM.CORE ---
Physician DVT/VTE - Prophylaxis Currently: Patient already on anticoagulation therapy - warfrin - Nurse DVT Assessment & Total Each Risk Factor Represents 2 Points: Age 60-74 Each Risk Factor Represents 1 Point: Hx of smoking past year Each Risk Factor is 1 Point: Obesity (BMI >25) DVT Assessment Score: 4 - 5 or more Very High Risk Treatments: Early Ambulation *, Sequential Compression Device Pharmacological: Warfarin daily
[2018-01-18] MEDS: SOTALOL 80 MG TAB PO SCH ×2 (03:31→09:51)
[2018-01-18] MEDS ORDERED: DIGOXIN INJ 0.5 MG/2 ML AMP IV ONE (05:00)
[2018-01-18] MEDS: KCL 20 MEQ/NS 1,000 ML IVS PRN (05:58)
[2018-01-18 06:07] VITALS: TEMP 98.2
[2018-01-18] MEDS ORDERED: ASPIRIN EC 81 MG TAB PO SCH (09:00)
[2018-01-18] MEDS ORDERED: PANTOPRAZOLE SODIUM TAB 40 MG PO SCH (09:00)
[2018-01-18] MEDS ORDERED: MEMANTINE 10 MG TAB PO SCH (09:00)
[2018-01-18] MEDS ORDERED: ASPIRIN TABLET 325 MG TAB PO SCH (09:00)
[2018-01-18] MEDS ORDERED: ATORVASTATIN 20 MG TAB PO SCH (09:00)
[2018-01-18] MEDS: SODIUM CHLORIDE 0.9% (FLUSH) 10 ML SYG IV SCH (09:18)
--- NOTE | 2018-01-18 15:49 | DS ---
SUPERVISING PHYSICIAN: Artie Dai MD DISCHARGE DIAGNOSIS: 1. Atrial flutter with 2:1 conduction and rapid ventricular response with the patient having a history of atrial flutter that is paroxysmal in nature with previous ablations in the past. 2. Chronic Coumadin therapy with supratherapeutic level today, likely due to false elevation from drawing levels two hours after initial dose was taken today. 3. Hyperlipidemia. 4. Benign prostatic hypertrophy. 5. Mild electrolyte imbalance, improved. 6. Mild dementia. HISTORY OF PRESENT ILLNESS: This is a 67-year-old male patient with a history of atrial fibrillation and flutter that is paroxysmal in nature. He has had multiple ablations in the past. He is followed by Dr. Jurado. He has had several episodes and at least twice a year where he apparently goes into atrial fibrillation or flutter with rapid ventricular response. In the three days prior to his admission, he noted he was starting to have a rapid heart rate but had delayed coming to the hospital hoping that he would convert without any assistance. His symptoms continued to worsen and he developed some gastric discomfort as well as some substernal chest pain. He had also been feeling weak and dizzy. He has not had any syncopal or near-syncopal episodes. He denied any orthopnea or paroxysmal nocturnal dyspnea. In the Emergency Room, his vital signs showed he was afebrile with a temperature of 97.4. Heart [id number] with a blood pressure of 102/77 with saturation of 95%. He was given some Cardizem. His magnesium was also low in the Emergency Room and he was also on Sotalol for rate control. In addition to Cardizem, he was also given digoxin. Prior to his arrival in the Emergency Room, he had taken his usual dose of 10 mg of warfarin and his initial INR was 4.36. His EKG showed atrial flutter with a 2:1 conduction. His cardiac enzymes were negative. He was admitted to the hospital. HOSPITAL COURSE: He was given digoxin with a dig level after completion of his being digitalized was 1.4. He was also given Sotalol as well as Cardizem. After administration of medications, his initial heart rate went down to as low as 98, but again resumed to 102. His Coumadin was held and his vital signs remained stable with systolic blood pressure in the 100s. I spoke with Dr. Jurado ' associated, Dr. Carter and he agreed that due to the multiple attempts at chemically converted Mr. Hutchins, it would be beneficial for him to be transferred to [place] for further workup. I spoke with Dr. Carter on several occasions. He agreed that we should not correct his INR at this time. Acceptance was obtained at [facility], room [address]. Dr. Spann is the hospitalist accepting the patient. Dr. Carter will see the patient at the hospital. DISCHARGE PLAN: The patient will be discharged to [facility] via ambulance in stable condition. He also has a followup with Dr. Isaacs on at 2 PM. He is to return to the hospital or followup with Dr. Isaacs for any further problems or complications after discharge from the hospital. He will be transported via ground ambulance. DISCHARGE MEDICATIONS: 1. Warfarin. 2. Sotalol. 3. Lipitor. 4. Aspirin. 5. Namenda. 6. Pantoprazole. #[id number] [facility]
[2018-01-18 15:58] VITALS: BP 112/79; O2SAT 97
== END 2018-01-18 15:40 | disposition short-term general hospital (02) ==
LOC: ER 11:12 → MS 15:11
PROVIDERS: ADMIT Nurse Practitioner Family; ATTEND Nurse Practitioner Acute Care
DX: I48.92 Unspecified atrial flutter (principal); I48.0 Paroxysmal atrial fibrillation; R79.1 Abnormal coagulation profile; R07.2 Precordial pain; E78.5 Hyperlipidemia, unspecified; N40.0 Benign prostatic hyperplasia without lower urinary tract symptoms; E87.8 Other disorders of electrolyte and fluid balance, not elsewhere classified; E87.1 Hypo-osmolality and hyponatremia; E83.42 Hypomagnesemia; F03.90 Unspecified dementia, unspecified severity, without behavioral disturbance, psychotic disturbance, mood disturbance, and anxiety; F17.210 Nicotine dependence, cigarettes, uncomplicated; Z79.01 Long term (current) use of anticoagulants; Z79.82 Long term (current) use of aspirin; Z79.899 Other long term (current) drug therapy
CPT/HCPCS: 36415 ×5; 71045; 80048; 80053; 80061; 80162; 82150; 82550 ×3; 82553 ×3; 83735 ×2; 83880; 84443; 84484 ×3; 85025 ×2; 85610 ×2; 85730; 93005; 94762; 96365; 96375; 96376 ×2; 99284; 99406; J1160 ×3; J3475; J3480 ×2

== ENCOUNTER → 2018-02-03 | Outpatient (CLI) | payer MEDICARE, BC ==
--- NOTE | 2018-02-04 12:41 | RAD ---
EXAM DESCRIPTION: Chest,2 Views CLINICAL HISTORY: I51.9 COMPARISON: Chest radiograph dated March 19, 2015 FINDINGS: Frontal and lateral views of the chest. Calcific atherosclerosis noted of the aortic arch. Cardiac silhouette shows borderline cardiomegaly. There is progressive increased interstitial markings throughout the right lung, greater than left lung. Redemonstration of alveolar opacity in the right lower lung zone. No pleural effusion. No pneumothorax. No acute osseous abnormality. IMPRESSION: 1. Borderline cardiomegaly with progressive increased interstitial markings throughout the right lung, greater than left lung, with redemonstration of alveolar opacity in the right lower lung zone. Findings compatible with early congestive failure with interstitial edema and probable early pulmonary edema, right greater than left. Multifocal atypical inflammatory/infectious processes are additional considerations. Electronically signed by: Gordy Arias MD 02/04/2018 12:38 PM CDT
== END ==
LOC: RAD 14:12
PROVIDERS: ATTEND Nuclear Medicine Nuclear Cardiology
DX: I51.9 Heart disease, unspecified (principal); I25.10 Atherosclerotic heart disease of native coronary artery without angina pectoris; I48.3 Typical atrial flutter

== ENCOUNTER → 2018-02-10 | Outpatient (CLI) | payer MEDICARE, BC | LOC: CT 14:33 | PROVIDERS: ATTEND Family Medicine | DX: R06.02 Shortness of breath (principal) ==

== ENCOUNTER → 2018-02-21 | Outpatient (CLI) | payer MEDICARE, BC | END | disposition home or self-care (01) | LOC: GMAB 14:11 | PROVIDERS: ATTEND Family Medicine | DX: R06.02 Shortness of breath (principal); R63.4 Abnormal weight loss ==

== ENCOUNTER → 2018-05-05 | Outpatient (CLI) | payer MEDICARE, BC ==
--- NOTE | 2018-05-05 15:41 | CT ---
EXAM DESCRIPTION: Chest w/o Contrast : Computed Tomography. CLINICAL HISTORY: SOLITARY NODULE OF LUNG COMPARISON: 2 view chest x-ray 04/05/2018. TECHNIQUE: Spiral-axial scans at 5.0 mm intervals through the lungs and thorax without IV contrast. 2.5 mm lung algorithm axial reconstructions. Coronal and sagittal 3.0 mm Mm reconstructions. No adverse reactions. Total Exam DLP: 683.78 mGy-cm. This exam was performed according to our departmental dose-optimization program which includes automated exposure control, adjustment of the mA and/or kV according to patient size and/or use of iterative reconstruction technique; to reduce radiation dose to as low as reasonably achievable (ALARA). FINDINGS: Bilateral minimal groundglass density versus dependent atelectasis more in the posterior lower lobes than the upper lobes. There is also honeycombing in the inferior lingula laterally in the superior segment of the left lower lobe. Lateral proximal scarring. 4 mm soft tissue subpleural nodule in the right upper lobe on axial series 4, image 73. 4 mm nodule in the base of the anterior right upper lobe on image 76 subpleural location. 3 mm central nodule right lower lobe on image [id number]. Bilateral regions of pleural thickening with no pleural effusion or pneumothorax. Evaluation of soft tissues limited due to lack of IV contrast. Heterogeneous density of the thyroid gland with no large soft tissue masses in the neck base. Atherosclerotic calcifications aorta and proximal brachiocephalic vessels with minimal dilation of the ascending aorta. No significantly abnormal contour. Coronary artery calcifications. No large soft tissue masses in the mediastinum or the axilla. The subdiaphragmatic peritoneal space contains no fluid. Included adrenal glands and spleen are unremarkable. Atherosclerotic calcification in the aorta. Gallbladder partially visualized. Diffuse radiodense material, without distinct stones, in the included upper collecting system of the left kidney. Multiple levels of spondylosis in the thoracic spine with decreased bone density but no bone destruction or vertebral body compression. Arthrosis bilateral glenohumeral joints with subchondral radiolucency right humeral head. IMPRESSION: 1. Mild basilar early groundglass infiltrate or atelectasis with honeycombing interstitial process in the superior segment of the left lower lobe. Bilateral soft tissue pulmonary nodules. Consider optional chest CT scan in 12 month interval, according to [facility] Best Practice recommendations utilizing Fleischner Society 2017 recommendations for multiple pulmonary nodules. 2. Atherosclerotic changes in the thoracic aorta and coronary arteries with no large soft tissue masses in the neck base or mediastinum. Evaluation is limited due to lack of IV contrast. 3. Question of nephrolithiasis left kidney. Consider follow-up renal ultrasound. * 2017 Fleischner Society Recommendations for Multiple Solid Lung Nodules Follow-Up base on size (average of long- and short-axis diameters). Use most suspicious nodule for followup. Nodule Size <6 mm Low-Risk Patient: No routine follow-up Nodule Size <6 mm High-Risk Patient: Optional CT at 12 months Electronically signed by: Luis Miguel Holt MD 05/05/2018 3:39 PM CDT
== END ==
LOC: CT 09:00
PROVIDERS: ATTEND Internal Medicine Pulmonary Disease
DX: J98.4 Other disorders of lung (principal)

== ENCOUNTER → 2018-12-15 | Outpatient (CLI) | payer MEDICARE, BC ==
--- NOTE | 2018-12-15 20:53 | US ---
EXAM DESCRIPTION: Aorta: Ultrasound. CLINICAL HISTORY: ABDOMINAL AORTIC ANEURYSM, WITHOUT RUPTURE COMPARISON: Abdominal aortic ultrasound 11/25/2017. TECHNIQUE: Transcutaneous scanning: Two-dimensional and Doppler modes. FINDINGS: Abdominal aorta diameter - Proximal: 2.0 x 1.6 cm. Mid: 1.8 cm., AP Distal: 3.2 x 2.5 cm. Common Iliac diameter - Right: 11 mm. Left: 11 mm. Other: Intimal wall thickening and calcification in the distal abdominal aorta. IMPRESSION: Distal abdominal aorta transverse measurement is 3.2 cm. Since this is slightly more than 1.5 times proximal abdominal aorta diameter 2.0 cm, (3.0 cm) this represents a small aneurysm, but is decreased in diameter compared to the prior study (3.7 cm). [facility] Best Practice recommendations: imaging follow-up recommended in 3 year interval. Please see below*. * If aorta < 2.6 cm, no follow-up imaging is recommended; if aorta 2.6-2.9 cm, recommend follow-up every 5 years if >= 1.5 x proximal segment, but if < 1.5 x proximal segment, this is ectasia and no follow-up imaging is recommended; if AAA 3.0-3.4 cm recommend follow-up every 3 years; if AAA 3.5-3.9 cm recommend follow-up every 12 months; if AAA 4.0-4.4 cm recommend vascular consultation and follow-up every 12 months; if AAA 4.5-5.4 cm, recommend vascular consultation and follow-up every 6 months if AAA >= 5.5 cm recommend referral to vascular surgeon. Reference: J Vasc Surg 2009 Oct;50(4 Suppl):S2-49. Electronically signed by: Luis Miguel Holt MD 12/15/2018 8:51 PM [employer]
== END ==
LOC: US 11:28
PROVIDERS: ATTEND Family Medicine
DX: I71.4 Abdominal aortic aneurysm, without rupture (principal)

== ENCOUNTER 2020-05-14 | Emergency (ER) | payer MEDICARE, BC ==
--- NOTE | 2020-05-14 10:09 | ED.PDOC ---
History of Present Illness - General Chief Complaint: Trauma Stated Complaint: Puncture wounds left arm Time Seen by Provider: 05/14/20 10:06 Source: patient Exam Limitations: no limitations - History of Present Illness Initial Comments: Pt reports that between 1-1.5 hrs ago he was cutting down [place] trees. He said he was down low to the ground. He said he all of a sudden noticed swelling and 2 possible puncture wounds on his left forearm. He said he didn't feel a bite. He's not sure if it was from a snake bite or punctures from the [place] trees themselves. Pt says the swelling is significantly improved at this time. Occurred: just prior to arrival Pain - Upper Extremity: mild: Forearm, left Method of Injury: unknown Improving Factors: nothing Worsening Factors: nothing Allergies/Adverse Reactions: Allergies NO KNOWN ALLERGY Allergy (Verified 01/17/18 15:38) Home Medications: Ambulatory Orders Atorvastatin Calcium [Lipitor] 20 mg PO DAILY 06/14/13 Memantine HCl [Namenda] 10 mg PO DAILY 01/17/18 Pantoprazole Sodium 40 mg PO DAILY 01/17/18 Clindamycin HCl 300 mg PO TID #21 cap 05/14/20 Rivaroxaban [Xarelto] 15 mg PO DAILY 05/14/20 Review of Systems - Review of Systems Constitutional: States: no symptoms reported. Denies: chills, diaphoresis, fever, malaise, weakness Respiratory: States: no symptoms reported Cardiology: States: no symptoms reported Genitourinary: States: no symptoms reported Musculoskeletal: States: muscle pain - slight. Denies: joint pain, joint swelling, muscle stiffness Skin: States: no symptoms reported. Denies: change in color Neurological: States: no symptoms reported Past Medical History (General) - Patient Medical History Hx Seizures: No Hx Stroke: No Hx Asthma: No Hx of COPD: No Hx Cardiac Disorders: Yes - A-fib Hx Congestive Heart Failure: No Hx Pacemaker: No Hx Hypertension: No Hx Diabetes: No Hx Gastroesophageal Reflux: Yes Hx MRSA: No - Vaccination History Hx Tetanus, Diphtheria Vaccination: No Hx Influenza Vaccination: No Hx Pneumococcal Vaccination: Yes - 10/28/17 - Social History Hx Tobacco Use: Yes Hx Alcohol Use: No Hx Substance Use: No Hx Substance Use Treatment: No Hx Depression: No Hx Physical Abuse: No Hx Emotional Abuse: No - Female History Patient : No Family Medical History - Family History Father Living Status: Cause of : cancer-lung Hx Cardiac Disease: Yes - multiple family members Physical Exam - Physical Exam General Appearance: Alert, Comfortable, No apparent distress Cardiovascular/Respiratory: regular rate, rhythm, normal peripheral pulses, normal breath sounds, no respiratory distress Shoulder Exam: normal inspection, non-tender, no evidence of injury, normal ROM Elbow/Forearm Exam: normal ROM, soft tissue tenderness - 2 ? puncture wounds left forearm, by 2cm. No erythema. 3 x 4 cm of edema around possible puncture wounds. No discoloration. No purulent drainage. Wrist Exam: normal inspection, non-tender, no evidence of injury, normal ROM Hand Exam: normal inspection, non-tender, no evidence of injury, normal ROM Neuro/Tendon: normal sensation, normal motor functions, normal tendon functions, no evidence tendon injury Mental Status: alert, oriented x 3 Skin Exam: normal color Progress - Progress Progress: 05/14/20 10:13 Very unclear as to whether these are puncture wounds from tree/brush, or a bite. Not likely a high concern considering pt did not feel sting/bite and pt reports significant improvement already. I will observe pt for 1 hour and then reassess wound. If not worsening, will d/c home with precautions. 05/14/20 10:53 Pt has no complaints. He denies pain in left arm or any other symptoms. Left arm reassessed. Decreased swelling. No discoloration. Pt still has nl ROM of left shoulder, elbow, wrist and digits. Pt ready to be d/c home. Departure - Departure Clinical Impression: Puncture wound Time of Disposition: 10:54 Disposition: Discharge to Home or Self Care Condition: Excellent Departure Forms: ED Discharge - Pt. Copy, Patient Portal Self Enrollment Instructions: DI for Trauma Referrals: MARIA TERESA SHAH MD [Primary Care Provider] - 1-2 Weeks Prescriptions: Clindamycin HCl 300 mg PO TID #21 cap Home Medications: Ambulatory Orders Atorvastatin Calcium [Lipitor] 20 mg PO DAILY 06/14/13 Memantine HCl [Namenda] 10 mg PO DAILY 01/17/18 Pantoprazole Sodium 40 mg PO DAILY 01/17/18 Clindamycin HCl 300 mg PO TID #21 cap 05/14/20 Rivaroxaban [Xarelto] 15 mg PO DAILY 05/14/20
== END 2020-05-14 11:03 | disposition home or self-care (01) ==

== ENCOUNTER 2020-06-12 11:09 | Emergency (ER) | payer MEDICARE, BC ==
[2020-06-12 11:33] VITALS: O2SAT 97
--- NOTE | 2020-06-12 11:48 | ED.PDOC ---
History of Present Illness - General Chief Complaint: Lower Extremity Injury Stated Complaint: right knee pain Time Seen by Provider: 06/12/20 11:26 - History of Present Illness Initial Comments: 89 M +pmh on xarelto presents to ED c/o right knee pain. Pt states 4-5 days ago he had his right knee and inner right thigh sandwiched between a golf cart and fence as he was trying to drive through it. Pt has associated bruising and pain to right inner thigh but is primarily c/o right knee pain. Pt remains ambulatory but with partial weight bearing and use of crutch. Denies h/o similar sx's or injury to knee. Denies associated numbness/tingling, decreased strength, focal weakness, cold extremity. Pt is otherwise healthy with no other signs, symptoms, or complaints. Allergies/Adverse Reactions: Allergies NO KNOWN ALLERGY Allergy (Verified 06/12/20 11:34) Home Medications: Ambulatory Orders Atorvastatin Calcium [Lipitor] 20 mg PO DAILY 06/14/13 Memantine HCl [Namenda] 10 mg PO DAILY 01/17/18 Pantoprazole Sodium 40 mg PO DAILY 01/17/18 Rivaroxaban [Xarelto] 15 mg PO DAILY 05/14/20 Acetamin W/Cod #3 Tab [Tylenol w/CODEINE #3] 1 ea PO Q6HRS PRN #12 tab 06/12/20 Review of Systems - Review of Systems Constitutional: Denies: chills, fever Gastrointestinal/Abdominal: Denies: nausea, other Musculoskeletal: States: joint pain, muscle pain. Denies: back pain, joint swelling Skin: States: change in color. Denies: lesions, rash Neurological: Denies: numbness, paresthesia, tingling, weakness Hematologic/Lymphatic: States: easy bruising - anticoagulated on xarelto Past Medical History (General) - Patient Medical History Hx Seizures: No Hx Stroke: No Hx Asthma: No Hx of COPD: No Hx Cardiac Disorders: Yes - A-fib Hx Congestive Heart Failure: No Hx Pacemaker: No Hx Hypertension: No Hx Diabetes: No Hx Gastroesophageal Reflux: Yes Hx MRSA: No Surgical History: other - Vaccination History Hx Tetanus, Diphtheria Vaccination: Yes Hx Influenza Vaccination: Yes Hx Pneumococcal Vaccination: Yes - 10/28/17 - Social History Hx Tobacco Use: Yes Hx Alcohol Use: Yes - occasional Hx Substance Use: No Hx Substance Use Treatment: No Hx Depression: No Hx Physical Abuse: No Hx Emotional Abuse: No - Female History Patient : No Family Medical History - Family History Father Living Status: Cause of : cancer-lung Hx Cardiac Disease: Yes - multiple family members Physical Exam - Physical Exam General Appearance: Alert, Comfortable, No apparent distress Eyes, Ears, Nose, Throat: PERRL/EOMI Neck: supple Cardiovascular/Respiratory: regular rate, rhythm, no M/R/G, no JVD, normal breath sounds, no respiratory distress Gastrointestinal/Abdominal: non-tender, other - bowel sounds wnl Thigh/Hip: other - right inner medial thigh with ecchymosis in various stages of healing and mild TTP, no hematoma, no deformity, no crepitance Leg: other - right leg neurovasculary intact distaly with strength/motor/sensation intact, <2 second capillary refill, DP/PT pulses 2+ Knee: other - ROM intact but with pain, mild medial joint line TTP, + LCL pain with varus strain, negative anterior/posterior drawer, negative McMurrays, no deformity, no crepitance, patella with normal positioning and know TTP Ankle: normal inspection, non-tender, no evidence of injury Mental Status: alert, oriented x 3 Skin: normal color, warm/dry, other - no rash, ecchymosis to right inner medial thigh Progress - Progress Progress: Presents with contusion of right inner thigh and likely sprain of right knee. I will order plain film and continue to monitor throughout ED course. Disposition will be discharge home with orthopedic f/u for further evaluation/management, prescription pain medication, and instructions/education. 06/12/20 12:02 Rechecked pt. NAD, VSS. I have discussed radiology results, my clinical impression, and diagnosis. I have also discussed plan for discharge home with f/u, education, and prescription medications. ED return precautions provided. Pt voices understanding, agrees with plan, and all questions answered. - Results/Orders Results/Orders: EXAM DESCRIPTION: Knee,Right Complete CLINICAL HISTORY: acute pain secondary to blunt injury COMPARISON: None. TECHNIQUE: 3 views right FINDINGS: I see no bone or joint abnormality. Calcific atherosclerotic changes observed in the popliteal artery. No fracture is detected. IMPRESSION: No fracturing is detected. Electronically signed by: Gordy Tirado MD 06/12/2020 11:47 AM CDT I have read the above report and reviewed the imaging; I agree with findings noted above. Departure - Departure Clinical Impression: Right knee sprain Qualifiers: Encounter type: initial encounter Involved ligament of knee: unspecified ligament Qualified Code(s): S83.91XA - Sprain of unspecified site of right knee, initial encounter Contusion of leg, right Qualifiers: Encounter type: initial encounter Qualified Code(s): S80.11XA - Contusion of right lower leg, initial encounter Time of Disposition: 11:56 Disposition: Discharge to Home or Self Care Condition: Excellent Departure Forms: ED Discharge - Pt. Copy, Patient Portal Self Enrollment Instructions: DI for Leg Pain Diet: resume usual diet Referrals: MARIA TERESA SHAH MD [Primary Care Provider] - 1 Week Shaan Box MD [Active Staff] - 1 Week (Discuss MRI of right knee) Prescriptions: Acetamin W/Cod #3 Tab [Tylenol w/CODEINE #3] 1 ea PO Q6HRS PRN #12 tab PRN Reason: Mild To Moderate Pain Home Medications: Ambulatory Orders Atorvastatin Calcium [Lipitor] 20 mg PO DAILY 06/14/13 Memantine HCl [Namenda] 10 mg PO DAILY 01/17/18 Pantoprazole Sodium 40 mg PO DAILY 01/17/18 Rivaroxaban [Xarelto] 15 mg PO DAILY 05/14/20 Acetamin W/Cod #3 Tab [Tylenol w/CODEINE #3] 1 ea PO Q6HRS PRN #12 tab 06/12/20 Comments: [employer] aware reviewed @11:59 AM. NARX score 090/050/000 with total risk 180.
[2020-06-12 12:08] VITALS: BP 133/74; TEMP 97
== END 2020-06-12 12:09 | disposition home or self-care (01) ==
LOC: ER 11:09
DX: S83.91XA Sprain of unspecified site of right knee, initial encounter (principal); S70.11XA Contusion of right thigh, initial encounter; I48.91 Unspecified atrial fibrillation; K21.9 Gastro-esophageal reflux disease without esophagitis; Z87.891 Personal history of nicotine dependence; Z79.01 Long term (current) use of anticoagulants; Z79.899 Other long term (current) drug therapy; W23.0XXA Caught, crushed, jammed, or pinched between moving objects, initial encounter; Y92.9 Unspecified place or not applicable; Y93.89 Activity, other specified

== ENCOUNTER → 2020-06-17 | Outpatient (CLI) | payer MEDICARE, BC ==
--- NOTE | 2020-06-17 15:45 | US ---
EXAM DESCRIPTION: Venous,Lower Extremity RT: ULTRASOUND. CLINICAL HISTORY: PN IN RIGHT THIGH COMPARISON: None Available. TECHNIQUE: Lester-scale and doppler sonographic evaluation of the deep venous system of the right lower extremity. FINDINGS: Doppler evaluation shows normal color flow and normal phasicity and augmentation of the right common femoral vein, right femoral vein, popliteal vein, greater saphenous saphenous vein, junction with the CFV. Also normal color flow and normal phasicity and augmentation of the peroneal, and posterior tibial vein. The right lower extremity deep veins were completely compressible; normal occlusion with transducer pressure. Lester-scale survey showed no echogenic thrombus within these veins. Atherosclerotic calcifications in the right common femoral artery and right femoral artery. IMPRESSION: 1. Duplex ultrasound evaluation of the right lower extremity deep venous system showing no evidence of thrombosis. 2. Atherosclerotic calcifications in the right common femoral artery and right femoral artery. Electronically signed by: Luis Miguel Holt MD 06/17/2020 3:44 PM CDT
== END ==
LOC: US 13:46
PROVIDERS: ATTEND Family Medicine
DX: M79.651 Pain in right thigh (principal); I70.211 Atherosclerosis of native arteries of extremities with intermittent claudication, right leg

== ENCOUNTER → 2020-06-18 | Outpatient (CLI) | payer MEDICARE, BC ==
--- NOTE | 2020-06-18 13:05 | MRI ---
Study: MRI of the Right Knee. Indication: RT KNEE PAIN Technique: Multiplanar, multi sequence MRI of the right knee was obtained without intravenous contrast. Comparison: None. Findings: Mild mucoid degeneration ACL without acute tear. PCL, MCL, and lateral collateral ligament complex intact. Scattered degenerative signal changes medial meniscus and lateral meniscus. Multifocal free edge fraying of the lateral meniscus as well as mild attenuation of its posterior root. Areas of grade 2 and mild grade 3 chondrosis medial compartment with more pronounced grade 3 and mild grade 4 changes of the lateral compartment. Tendinosis and mild interstitial fissuring quadriceps tendon insertion. Patellar tendon intact. Trace lateral patellar subluxation. TT-TG distance measures 15 mm. Heterogeneous areas of grade 3 chondrosis throughout the patella with mild grade 4 chondrosis at the inferior margin of the medial patellar facet. Small knee effusion. No acute fracture. Impression: Mild mucoid degeneration ACL without acute tear. Free edge fraying throughout the lateral meniscus with mild attenuation of its posterior root attachment but without transection. Grade 2-3 chondrosis medial compartment with grade 3-4 changes of the lateral and patellofemoral compartments. Small knee effusion. Electronically signed by: Manuel Johnson MD 06/18/2020 1:03 PM CDT
== END ==
LOC: MRI 08:00
PROVIDERS: ATTEND Family Medicine
DX: M23.301 Other meniscus derangements, unspecified lateral meniscus, left knee (principal); M94.261 Chondromalacia, right knee; M25.461 Effusion, right knee